=== PATIENT | female | born 1975 | race Two or more races ===

== ENCOUNTER 2019-04-04 15:11 | Inpatient (IN) | payer OTHER ==
[~2019-04-04] VITALS: Ht 165.1 cm; Wt 71.2 kg
== END 2019-04-09 14:40 | disposition home or self-care (01) | DRG 743 ==
LOC: O/R 04-07 11:08 → SURH 04-07 11:49 → SURG 04-07 18:46 → SURH 04-07 20:45 → SURG 04-09 14:40
PROVIDERS: ADMIT Obstetrics & Gynecology Gynecology
PROC: 0UT70ZZ Resection of Bilateral Fallopian Tubes, Open Approach (ICD-10-PCS; 2019-04-07)
PROC: 0UT90ZZ Resection of Uterus, Open Approach (ICD-10-PCS; principal; 2019-04-07 20:45)
DX: D25.1 Intramural leiomyoma of uterus (principal); D25.0 Submucous leiomyoma of uterus; N72 Inflammatory disease of cervix uteri; N83.8 Other noninflammatory disorders of ovary, fallopian tube and broad ligament